=== PATIENT | male | born 1945 | race Caucasian/White ===

== ENCOUNTER 2019-02-28 12:11 | Observation (INO) | payer MEDICARE ==
[~2019-02-28] VITALS: Ht 175.3 cm; Wt 103.0 kg
[~2019-02-28 12:11] MED LIST: AVAPRO300 M1 PO; AVODART 0.5MG0.5 MG PO; CATAPRES0.2 MG PO; CLONIDINE0.2 MG PO; FLOMAX 0.40.4 MG/CAP PO; HCTZ 25MG25 MG PO; LASIX 40MG TABL40 MG PO; LEVEMIR SQ; LEVEMIR100 U/ML SC; NITROQUICK0.4 MG SL; NORVASC 10MG10 MG PO; NORVASC 5MG5 MG/TAB PO; NOVOLIN 70/30 PE3 ML SC; NOVOLOG MIX 70/33 ML SC; QUINAPRIL40 MG PO; SINGULAIR 110 MG/TAB PO; TOPROL XL100 MG PO; TRICOR145 MG PO; VITAMIN E1000 U/CAP PO
--- NOTE | 2019-02-28 12:45 | NUR ---
The patient was brought back to [facility] via wheelchair at this time. The patient was assisted from the wheelchair to the cart in his room with the assistance of one nurse and appeared to tolerate the activity well. The patient is able to state his name and date of but is unable to state that he is in the hospital, what surgery he is schedule to have done or the doctor that is scheduled to do the surgery. The patient was assisted to get changed into his gown and appeared to tolerate the activity well. The patient has a covered wound to his left great toe at this time.
--- NOTE | 2019-02-28 13:05 | NUR ---
The patient's primary nurse at [facility] in [place] was called to check the patient's baseline mentation. She verbalized that the patient was alert and oriented x3 this morning prior to leaving, he knew he was getting a catheter placed and was anxious to leave for the hospital to get it done. She did state that his blood sugar was 98 around 2 hours ago. The patient's blood sugar was rechecked with a result of 123. Will continue to monitor the patient.
--- NOTE | 2019-02-28 13:23 | NUR ---
Dr. Herrera notified of the patient's current condition on admission and he verbalized understanding of the report given. New orders were given and entered in the computer. Will continue to monitor the patient.
--- NOTE | 2019-02-28 13:30 | NUR ---
RODRIGO Shepherd was at the patient's bedside to assess him at this time. Respiratory therapy is also present to complete the EKG as ordered. The patient continues to not know the year or where he is or why he is here. Call light is within reach. Will continue to monitor the patient.
--- NOTE | 2019-02-28 13:42 | NUR ---
Dr. Ochoa was called and a message was left regarding the patient's condition upon admission and orders that have already been given by Dr. Herrera. A callback number was left to reach the nurse.
[2019-02-28 13:57] LABS: BASO # 0.1 (0.0-0.2); BASO % 1.2 % (0.0-2.0); EOS # 0.3 (0.0-0.7); EOS % 5.6 % (0-4.0); GRAN % 51.1 % (42.2-75.2); HEMOGLOBIN 10.5 g/dl (13.5-18.0); LYMPH # 1.8 (1.2-3.4); LYMPH % 30.6 % (20.0-51.0); MEAN CELL VOLUME 88 fl (80.0-100.0); MEAN CORPUSCULAR HEMOGLOBIN 27 pg (27.0-31.0); MEAN CORPUSCULAR HGB CONC 30 g/dl (33.0-37.0); MEAN PLATELET VOLUME 8.7 fl (7.4-10.4); MONO # 0.7 (0.1-0.6); MONO % 11.2 % (1.7-9.3); PLATELET COUNT 250 K/mm3 (130-400); RED BLOOD COUNT 3.92 M/mm3 (4.20-5.60); REDCELL DISTRIBUTION WIDTH-CV 16.1 % (11.5-14.5)
[2019-02-28 13:58] LABS: HEMATOCRIT 34.5 % (42.0-52.0)
--- NOTE | 2019-02-28 14:00 | NUR ---
Dr. Ochoa called back and verbalized understanding of the report given on the message. She gave further orders for the patient at this and those were entered in the computer.
[2019-02-28 14:07] LABS: CALCIUM 8.8 mg/dL (8.4-10.2); CREATININE, serum 1.08 (0.66-1.25); POTASSIUM 4.2 mmol/L (3.4-5.0)
[2019-02-28] MEDS ORDERED: ABILIFY5 MG (14:23)
[2019-02-28] MEDS ORDERED: ASPIRIN 81M81 MG/TA2 PO (14:24)
--- NOTE | 2019-02-28 14:25 | NUR ---
The patient's bedside cystoscopy with landers placement is complete and the patietn was turned on to his right side with a pillow behind his back. While turning the patient his buttock was assessed and found to be reddened but still blanchable. He appears to be resting comfortably on the cart. Call light is within reach. Will continue to monitor the patient.
[2019-02-28] MEDS ORDERED: EFFEXOR-XR150 MG PO (14:26)
[2019-02-28] MEDS ORDERED: SYNTHROID0.05 MG/TA PO (14:37)
[2019-02-28] MEDS ORDERED: MIRALAX PA17 GM/Dose PO (14:39)
[2019-02-28] MEDS ORDERED: NOVLOG SQ (14:46)
[2019-02-28] MEDS ORDERED: NOVOLOG FLEX100 U/ML (14:49)
[2019-02-28] MEDS ORDERED: PRILOSEC 20MG20 MG PO (14:51)
[2019-02-28] MEDS ORDERED: NEUTROGENA T TOP (14:53)
[2019-02-28] MEDS ORDERED: [UNRECOGNIZED DRUG - OTHER] TOP (14:53)
[2019-02-28] MEDS ORDERED: MULTI VITAMINS1 TAB PO (14:56)
[2019-02-28] MEDS ORDERED: COREG 6.256.25 MG/TA PO (14:57)
[2019-02-28 15:00] VITALS: BP 153/73; PULSE 87; TEMP 98.1
[2019-02-28] MEDS ORDERED: FENTANYL 50MCG TD (15:00)
[2019-02-28] MEDS ORDERED: GERI-TUSSI100 MG/5 M PO (15:07)
[2019-02-28] MEDS ORDERED: GLUCAGON EMERGEN1 M1 SQ (15:08)
--- NOTE | 2019-02-28 15:09 | NUR ---
Natasha, nurse at [facility], was called to notify her that the patient's surgery is cancelled and he is being admitted at our hospital. She verbalized understanding of the report given.
[2019-02-28] MEDS ORDERED: NORCO 325 MG-51 TAB PO (15:15)
--- NOTE | 2019-02-28 15:20 | NUR ---
Dr. Ochoa and BARABRA Gill are at the patient's bedsidse assessing him at this time.
[2019-02-28] MEDS ORDERED: NATURAL SENNA8.6 MG PO (15:24)
[2019-02-28] MEDS ORDERED: ZANAFLEX2 MG PO (15:25)
[2019-02-28] MEDS ORDERED: TRIAMC 0.1 454 TOP (15:27)
[2019-02-28] MEDS ORDERED: TYLENOL 325MG325 MG PO (15:29)
[2019-02-28] MEDS ORDERED: ATROVENT INHALE14 GM IH (15:33)
[2019-02-28] MEDS ORDERED: NITROSTAT0.4 MG/TAB SL (15:36)
[2019-02-28] MEDS ORDERED: VOLTAREN GEL 1%1 TU TD (15:38)
--- NOTE | 2019-02-28 15:40 | NUR ---
Report was called to KALIE Sales who will be assuming the care of the patient on [facility]. She verbalized understanding and questions were answered at this time. She is to call the patient back when the room is ready for him to be transferred.
--- NOTE | 2019-02-28 16:20 | NUR ---
The patient was transferred up to Room 345 at this time. KALIE Sales is at the patient's bedside to accept the patient and help transfer him at this time. The patient transferred from the cart to the bed in the room with the stand by assistance of two nurses and required verbal commands to transfer. The patient oxygen 2L per nasal cannula was resumed at this time. The patient's call light is within reach. The patient's belongings and chart were transferred with him.
--- NOTE | 2019-02-28 16:30 | NUR ---
Patient alert, confused. See initial assessment. Attempts to reorient patient appears to confuse patient further. No c/o at this time.
[2019-02-28 16:42] VITALS: BP 181/93; PULSE 82; TEMP 98
[2019-02-28 19:54] VITALS: BP 121/62; PULSE 85; TEMP 98.8
--- NOTE | 2019-02-28 20:30 | NUR ---
New IV site to right wrist started on first attempt. Patient is alert to self, not sure where he is. Has pain patch to left scapula. Has a landers catheter to BSD with yellow urine. Has a sore on his left great toe, present on admission. Does not verbalize much. Bed alarm on.
--- NOTE | 2019-02-28 22:00 | NUR ---
Takes HS meds without problem including Vanilla pudding for snack.
[2019-02-28 22:09] LABS: COLLECTION METHOD CATHETER
[2019-02-28 22:47] LABS: PH 6 (5-8); SQUAMOUS EPITHELIAL None Seen /hpf; URINE APPEARANCE Clear; URINE BACTERIA None Seen /hpf; URINE BILIRUBIN Negative (NEGATIVE); URINE BLOOD 1+ (NEGATIVE); URINE COLOR Yellow; URINE GLUCOSE Negative (NEGATIVE); URINE KETONE Negative (NEGATIVE); URINE LEUKOCYTE ESTERASE Negative (NEGATIVE); URINE NITRATE Negative (NEGATIVE); URINE PROTEIN(semi-quant) 2+ (NEGATIVE); URINE RBC 0-2 /hpf; URINE UROBILINOGEN Negative (NEGATIVE)
[2019-02-28 23:26] VITALS: BP 153/78; PULSE 82; TEMP 97.6
[2019-03-01 05:35] VITALS: BP 149/77; PULSE 73; TEMP 97.5
--- NOTE | 2019-03-01 06:00 | NUR ---
Patient rested well this shift. Collazo patent with yellow urine. SCD's on bilateral lower legs.
[2019-03-01 06:53] LABS: BASO # 0.1 (0.0-0.2); BASO % 1.4 % (0.0-2.0); EOS # 0.2 (0.0-0.7); EOS % 4.4 % (0-4.0); GRAN # 2.6 (1.4-6.5); GRAN % 51.4 % (42.2-75.2); LYMPH # 1.6 (1.2-3.4); LYMPH % 31.5 % (20.0-51.0); MEAN CELL VOLUME 89 fl (80.0-100.0); MEAN CORPUSCULAR HEMOGLOBIN 27 pg (27.0-31.0); MEAN CORPUSCULAR HGB CONC 30 g/dl (33.0-37.0); MONO # 0.6 (0.1-0.6); MONO % 11.1 % (1.7-9.3); PLATELET COUNT 236 K/mm3 (130-400); RED BLOOD COUNT 3.69 M/mm3 (4.20-5.60); REDCELL DISTRIBUTION WIDTH-CV 16.4 % (11.5-14.5)
[2019-03-01 07:03] LABS: CALCIUM 8.6 mg/dL (8.4-10.2); CREATININE, serum 1.13 (0.66-1.25); POTASSIUM 4.4 mmol/L (3.4-5.0)
--- NOTE | 2019-03-01 07:14 | NUR ---
report to Heidi JADE
[2019-03-01 07:19] VITALS: BP 145/75; PULSE 75; TEMP 97.6
--- NOTE | 2019-03-01 08:00 | NUR ---
PATIENT IS SITTING UP IN BED THIS MORNING. PATIENT IS DROWSY BUT AROUSES EASILY TO NAME. PATIENT IS ABLE TO STATE HIS NAME, BIRTHDAY, THAT HE IS IN THE HOSPITAL IN [place] FOR A PROCEDURE. PATIENT UNABLE TO STATE DOCTORS NAMES, TYPE OF PROCEDURE HE IS HAVING, OR THE YEAR. VSS. ABDOMEN IS ROUNDED AND FIRM TO PALPATION. BOWEL SOUNDS ACTIVE ALL FOUR QUADRANTS. PATIENT TOLERATING DIET WITHOUT ANY COMPLAINTS OF N/V. UPPER LUNG LOBES CLEAR UPON AUSCULTATION. LUNG BASES DIMINISHED BILATERALLY. 1+ PITTING-EDEMA TO BLE. SCD'S TO BLE. HEALING PRESSURE ULCER TO LEFT GREAT TOE AND IS CANDY COUNTER CLERK. INDWELLING LEVIN CATHETER TO DEPENDENT DRAINAGE WITH YELLOW URINE AND MUCOUS PRESENT IN LEVIN BAG. IV FLUIDS INFUSING TO RIGHT FOREARM IV VIA PUMP. CALL LIGHT WITHIN REACH. PATIENT DENIES ANY NEEDS AT THIS TIME.
--- NOTE | 2019-03-01 10:27 | NUR ---
FADI met with the patient to discuss discharge plan. The patient reports that he resides at [facility] for long-term care. He states that he plans to return back there upon discharge. FADI presented him with the patient choice form. The patient verbalized understanding, signed, and he was provided a copy. The patient's PCP is Dr. Wilma Reyez. He states that he does not have advanced directives and he was not interested in completing them at this time. He states his next-of- kin is his sister, Soniya Nixon, and that she also lives in [place]. FADI attempted to contact Elif at [facility]. FADI left a voicemail. SW to fax updates to [facility] and will continue to follow.
[2019-03-01 12:41] VITALS: BP 140/77; PULSE 64; TEMP 97.6
[2019-03-01 16:56] VITALS: BP 140/77; PULSE 64; TEMP 97.6
--- NOTE | 2019-03-01 17:01 | NUR ---
The patient is to discharge today, 03/01, back to [facility] for long-term care. Transportation was set for around 1700, via [facility]. No additional needs at this time.
--- NOTE | 2019-03-01 17:02 | NUR ---
RIGHT FOREARM INT DICONTINUED PER PENDING TRANFER. TIP INTACT. PATIENT TOLERATED WELL. PATIENT PERSONAL BELONGINGS GATHERED. PATIENT TAKEN TO PRIVATE TRANSPORT VEHICLE VIA WHEELCHAIR. PATIENT TRANSFERRED.
--- NOTE | 2019-03-01 18:00 | NUR ---
REPORT CALLED TO CYNDI MAYORGA AT [facility] IN [place].
== END 2019-03-01 17:02 ==
LOC: SDCO 12:11 → SURG 17:22 → SDCO 03-01 14:07 → SURG 03-01 14:08
PROVIDERS: Family Medicine; ADMIT Urology
DX: N35.919 Unspecified urethral stricture, male, unspecified site (principal); N39.41 Urge incontinence; Q54.1 Hypospadias, penile; Z66 Do not resuscitate; R41.0 Disorientation, unspecified; I25.10 Atherosclerotic heart disease of native coronary artery without angina pectoris; Z95.1 Presence of aortocoronary bypass graft; E11.9 Type 2 diabetes mellitus without complications; Z79.4 Long term (current) use of insulin; E07.9 Disorder of thyroid, unspecified; I11.0 Hypertensive heart disease with heart failure; I50.9 Heart failure, unspecified; E78.5 Hyperlipidemia, unspecified; Z86.73 Personal history of transient ischemic attack (TIA), and cerebral infarction without residual deficits; F32.9 Major depressive disorder, single episode, unspecified; G89.29 Other chronic pain; R53.81 Other malaise; Z79.899 Other long term (current) drug therapy; Z79.82 Long term (current) use of aspirin; Z87.891 Personal history of nicotine dependence; Z83.3 Family history of diabetes mellitus; Z80.0 Family history of malignant neoplasm of digestive organs; Z88.0 Allergy status to penicillin; D64.9 Anemia, unspecified; Z79.84 Long term (current) use of oral hypoglycemic drugs
CPT/HCPCS: OP; 99222; J0690; J0696; J1815; J2704; J3010; J3480

== ENCOUNTER 2022-10-07 06:55 | Day surgery (SDC) | payer MEDICARE, MEDICAID ==
[~2022-10-07] VITALS: Ht 177.8 cm; Wt 74.6 kg
[2022-10-07] VITALS (7 sets, daily range): BP systolic 134–146; BP diastolic 54–71; PULSE 78–82; TEMP 97.3–97.4
[~2022-10-07 06:55] MED LIST changes: +ABILIFY5 MG; +ASPIRIN 81M81 MG/TA2 PO; +ATROVENT INHALE14 GM IH; +CATAPRES-TTS 30.3 MG TD; +COREG 6.256.25 MG/TA PO; +EFFEXOR-XR150 MG PO; +FENTANYL 50MCG TD; +GERI-TUSSI100 MG/5 M PO; +GLUCAGON EMERGEN1 M1 SQ; +MIRALAX PA17 GM/Dose PO; +MULTI VITAMINS1 TAB PO; +NATURAL SENNA8.6 MG PO; +NEUTROGENA T TOP; +NITROSTAT0.4 MG/TAB SL; +NORCO 325 MG-51 TAB PO; +NOVLOG SQ; +NOVOLOG FLEX100 U/ML; +PRILOSEC 20MG20 MG PO; +SYNTHROID0.05 MG/TA PO; +TRIAMC 0.1 454 TOP; +TYLENOL 325MG325 MG PO; +VENLAFAXINE225 MG PO; +VOLTAREN GEL 1%1 TU TD; +WELLBUTRIN SR150 M1 PO; +ZANAFLEX2 MG PO; +[UNRECOGNIZED DRUG - OTHER] TOP
[2022-10-07] MEDS ORDERED: LIPITOR20 MG PO (08:15)
[2022-10-07] MEDS ORDERED: PRINIVIL5 MG PO (08:17)
[2022-10-07] MEDS ORDERED: MINIPRESS2 MG (08:17)
[2022-10-07] MEDS ORDERED: MIRALAX PA17 GM/Dose PO (08:18)
[2022-10-07] MEDS ORDERED: NORVASC 10MG10 MG PO (08:19)
--- NOTE | 2022-10-07 12:10 | NUR ---
PT TO [facility] FROM PACU S/P SUPRAPUBIC CATHETER PLACEMENT. H/O CVA, WITH DIFFICULTY COMMUNICATING, IMPARED MOBILITY, DEMENTIA, ABLE TO MAKE NEEDS KNOWN, AWAKE, NAD, DENIES PAIN, PLACED ON MONITOR UPON ARRIVAL, DPOA IN ROOM. VSS ON RA. PT AT BASELINE PER DPOA/FAMILY FRIEND AND ADMITTING RN. PT TOLERATING CHIPS, WATER, ICE CREAM WITHOUT INCIDENT. ADDITIONAL 100ML OF NS INFUSED ORDERED - SL AFTER TOLERATING WATER. CATHETER EMPTIED OF 150ML JOLLEY RED OUTPUT WITH TWO SCANT CLOTS NOTED. DRSG AROUND CATH CHANGED - MINIMAL BLOOD, NOW HEMASTATIC. F/U APPT CONFIRMED - PT WILL COME BACK TO [facility] FOR CATH CHANGE ON 11/04/22 - SNF AWARE, ORDERS HAVE BEEN SENT FROM OFFICE, NOTED ON D/C PAPERWORK. TRANSPORT FROM [facility] ARRANGED. PT REMAINED AWAKE AND BASELINE FOR ENTIRE STAY IN [facility]. DPOA UPDATED. D/C PAPERWORK SENT WITH PT, WHO WAS DRESSED AND TRANSFERRED INTO W/C AND HANDED OFF TO TRNASPORT PERSON AT FRONT ENTRANCE. DPOA TO SEE PT AGAIN THIS AFTERNOON. IV D/C'D PRIOR TO DEPARTURE. PT REMAINS AWAKE, BASELINE, NAD, DENIES COMPLAINT. REASSURED AND ORIENTED FREQUENTLY.
== END 2022-10-07 12:00 ==
LOC: SDCO 06:55
DX: N35.011 Post-traumatic bulbous urethral stricture (principal); N31.9 Neuromuscular dysfunction of bladder, unspecified; N39.41 Urge incontinence; E11.9 Type 2 diabetes mellitus without complications; Z86.16 Personal history of COVID-19; Z95.1 Presence of aortocoronary bypass graft; Z87.891 Personal history of nicotine dependence; Z79.4 Long term (current) use of insulin
CPT/HCPCS: C1769; J0690; J1170; J2704; J3010; J7030

== ENCOUNTER 2022-11-04 07:38 | Outpatient (CLI) | payer MEDICARE, MEDICAID ==
[~2022-11-04] VITALS: Ht 182.9 cm; Wt 90.9 kg
[~2022-11-04 07:38] MED LIST changes: +LIPITOR20 MG PO; +MINIPRESS2 MG; +PRINIVIL5 MG PO
[2022-11-04] MEDS ORDERED: BASAGLAR K100 UNIT/1 SQ (09:34)
[2022-11-04] MEDS ORDERED: MIRTAZAPINE7.5 MG PO (09:36)
[2022-11-04] MEDS ORDERED: DOXYCYCLINE HY100 MG PO (09:43)
[2022-11-04 10:16] VITALS: BP 129/44; PULSE 45; TEMP 97.4
--- NOTE | 2022-11-04 10:35 | NUR ---
SUPRAPUBIC CATH CHANGED OUT, SECURED TO STATLOCK LLE, BAG EMPTIED PRIOR TO D/C. PT TOLERATED WELL, DENIES COMPLAINT. SNF NURSE CALLED WITH D/C REPORT. SNF STAFF CONTACTED - PT DRESSED AND TRANSFERRED TO W/C. PROVIDED WATER AND SUGAR FREE PUDDING PER REQUEST, TOLERATED WELL. BASELINE. PT REORIENTED TO PROCEEDURE OUTCOME AND D/C PLAN, ALONG WITH SNF STAFF. D/C AT 1000.
== END 2022-11-04 10:00 ==
LOC: SDCO 07:38
DX: N31.9 Neuromuscular dysfunction of bladder, unspecified (principal); N39.41 Urge incontinence; N35.011 Post-traumatic bulbous urethral stricture; E11.9 Type 2 diabetes mellitus without complications; Z87.891 Personal history of nicotine dependence; Z86.16 Personal history of COVID-19
CPT/HCPCS: 3305